=== PATIENT | female | born 1985 | race Caucasian/White ===

== ENCOUNTER 2022-07-04 09:00 | Outpatient (NON) | payer OTHER, SELFPAY | END 2022-07-04 09:01 | disposition home or self-care (01) | PROVIDERS: PCP Emergency Medicine; Visit Provider Internal Medicine Gastroenterology | DX: K58.1 Irritable bowel syndrome with constipation (principal) | CPT/HCPCS: 88305 ==

== ENCOUNTER 2022-07-04 09:26 | Day surgery (SDC) | payer OTHER, SELFPAY ==
[2022-05-24 14:42] VITALS: BMI 27.4
[2022-06-23 08:34] VITALS: BMI 27.3
[2022-07-04 10:25] VITALS: BP 116/84; PULSE 75; RESP 20; TEMP 36.3; O2SAT 100
--- NOTE | 2022-07-04 10:37 | P.PNAN_ITS ---
Anes - Initial Pre Proc Eval Procedure: Operation Date: 07/04/22 11:30 Proposed Procedures p Esophagogastroduodenoscopy - Stevo Roger MD s Diagnostic Colonoscopy - Stevo Roger MD Date/Time: 07/04/22 10:37 Surgeon: Stevo Roger MD Pre Op Diagnosis: Gerd and Irritable Bowel Syndrome w/Constipation Patient Data Age: 37 Gender: F Height: 1.68 m Weight: 79.3 kg Allergies Allergy/AdvReac Type Severity Reaction Status Date / Time No Known Allergies Allergy Verified 07/04/22 10:20 Home Medications Medication Instructions Recorded Confirmed Type norgestimate-ethinyl estradiol 1 tablet PO DAILY 06/23/22 07/04/22 History 0.18 mg/0.215mg/0.25mg-35 mcg(28)tablet (Tri-Estarylla) pantoprazole 40 mg tablet,delayed 40 mg PO DAILY 06/23/22 07/04/22 History release Patient hx anesthesia problems: none Family hx anesthesia problems: none Results Review: All pre-operative results and documents have been reviewed as part of the pre- operative evaluation. [facility] Social History Social History Smoking status: Never smoker Alcohol intake: current Alcohol use details: once a week Substance use: never Substance use type: does not use Living arrangements: with family Spiritual care concerns: No Anes - Eval Final PreProcedure Day of Procedure 07/04/22 10:37 Patient weight: overweight Heart: regular rate and rhythm Lungs: clear to auscultation Airway: Mallampati scale class II Neurological: alert and oriented Last oral intake: >/= 8 hours ASA classification: II Emergent: no Anesthetic plan: proceed Anesthesia type and monitoring: general GIVS and standard monitoring Results Review: All pre-operative results and documents have been reviewed as part of the pre- operative evaluation. Informed Consent: The patient's anesthetic plan and its attendant risks and benefits were discussed with the patient/family/POA. Questions were solicited and answers provided to the satisfaction of the patient/family/POA.
[2022-07-04] MEDS: LACTATED RINGERS 1,000 ML 150 ML IV CONT (10:46)
--- NOTE | 2022-07-04 10:47 | PM.HPGS ---
History of Present Illness History of Present Illness Consent: Risks, benefits, and alternatives have been discussed and questions answered. Patient agrees to proceed with procedure. 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 Never had scopes. Review of Systems Constitutional: Constitutional: Denies headache(s) and Denies weakness Eyes: Eyes: Denies blurry vision ENT: Reports Normal hearing present, Denies headache(s) and Denies neck pain Cardiovascular: Cardiovascular: Denies chest pain and Denies dyspnea Respiratory: Respiratory: Denies dyspnea Gastrointestinal: Gastrointestinal: Reports no additional gastrointestinal complaints Genitourinary: Genitourinary: Denies dysuria Musculoskeletal: Musculoskeletal: Denies neck pain Integumentary/Breasts: Skin/Breast: Denies dry skin Neurologic: Reports Normal hearing present, Denies headache(s) and Denies weakness Psychiatric: Psychiatric: Denies anxiety Endocrine: Endocrine: Denies change in body appearance Hematologic/Lymphatic: Hematologic/Lymphatic: Denies easy bleeding Allergic/Immunologic: Allergic/Immunologic: Denies urticaria PMFSH Past Medical History Medical History (Updated 07/04/22 @ 10:49 by Stevo Roger MD) Bloating Dyspepsia Irritable bowel syndrome with constipation Social History Social History Smoking status: Never smoker Alcohol intake: current Alcohol use details: once a week Substance use: never Substance use type: does not use Living arrangements: with family Spiritual care concerns: No Meds Home Medications and Allergies Home Medications Medication Instructions Recorded Confirmed Type norgestimate-ethinyl estradiol 1 tablet PO DAILY 06/23/22 07/04/22 History 0.18 mg/0.215mg/0.25mg-35 mcg(28)tablet (Tri-Estarylla) pantoprazole 40 mg tablet,delayed 40 mg PO DAILY 06/23/22 07/04/22 History release Allergies Allergy/AdvReac Type Severity Reaction Status Date / Time No Known Allergies Allergy Verified 07/04/22 10:20 Vital Signs Vital Signs - 24 hr 07/04/22 10:25 Temperature 97.4 F L Pulse Rate 75 Respiratory Rate 20 Blood Pressure 116/84 Pulse Oximetry 100 Oxygen Delivery Room Air Exam Const: General: comfortable and no acute distress HENMT: Face/Nose/Sinus: Normal nares present Eyes: General: appearance normal, both eyes and all related structures Neck: Neck: no JVD Resp: Auscultation: clear to auscultation bilaterally Cardio: Rate: regular rate Rhythm: regular rhythm GI: Inspection: non-distended GI Palp: Yes Soft to palpation Skin: General skin exam: normal color Neuro: General: gait normal Speech: normal speech Extrem: General: normal to inspection Psych: Mental Status: mental status grossly normal Assessment and Plan Assessment and plan (1) Dyspepsia: Code(s): R10.13 - Epigastric pain Status: Acute Assessment and Plan: egd with bx (2) Bloating: Code(s): R14.0 - Abdominal distension (gaseous) Status: Acute (3) Irritable bowel syndrome with constipation: Code(s): K58.1 - Irritable bowel syndrome with constipation Status: Acute Assessment and Plan: colonoscopy
[2022-07-04 11:17] VITALS: BP 105/66; PULSE 72; RESP 20; O2SAT 99
[2022-07-04 11:27] VITALS: BP 104/71; PULSE 73; RESP 20; O2SAT 100
[2022-07-04 11:37] VITALS: BP 108/82; PULSE 72; RESP 20; O2SAT 100
--- NOTE | 2022-07-04 11:51 | WPDANESPN ---
Anes - Prog Note Post-Op Date/Time: 07/04/22 11:51 Cardiovascular status: normal Respiratory status: normal Airway patency: baseline Mental status: baseline Post-Op hydration status: normal Vital Signs: Last Vital Signs Temp 36.3 C L 07/04/22 10:25 Pulse 72 07/04/22 11:17 Resp 20 07/04/22 11:17 BP 105/66 07/04/22 11:17 Pulse Ox 99 07/04/22 11:17 O2 Del Method Room Air 07/04/22 11:17 Pain Score (VAS): 0 Patient Feedback: Patient satisfied with anesthetic care.
== END 2022-07-04 12:04 | disposition home or self-care (01) ==
PROVIDERS: PCP Emergency Medicine; Visit Provider Internal Medicine Gastroenterology
PROC: 0DJ08ZZ Inspection of Upper Intestinal Tract, Via Natural or Artificial Opening Endoscopic (ICD-10-PCS; CPT 43235; principal; 2022-07-04 11:30)
PROC: 0DJD8ZZ Inspection of Lower Intestinal Tract, Via Natural or Artificial Opening Endoscopic (ICD-10-PCS; CPT 45378; 2022-07-04 11:30)
DX: R10.13 Epigastric pain (principal)
CPT/HCPCS: 45378; 43239